=== PATIENT | female | born 1985 | race Caucasian/White ===

== ENCOUNTER 2023-02-03 09:50 | Observation (INO) | payer OTHER ==
[~2023-02-03] VITALS: Ht 154.9 cm; Wt 69.4 kg
[2023-02-03] MEDS ORDERED: DEXT 5%/LACTATED RINGERS 1,000 ML IV SCH (11:00)
[2023-02-03 11:27] LABS: BASOPHILS % 0.3 % (0.0-2.0); HEMATOCRIT. 34.8 % (36.0-48.0); MEAN CORPUSCULAR HEMOGLOBIN 29.7 pg (28.0-32.0); MEAN CORPUSCULAR VOLUME 86.1 fL (81.0-99.0); MEAN PLATELET VOLUME 6.7 fl (7.4-10.4); MONOCYTES % 4.9 % (2.0-8.0); NEUTROPHILS % 74.8 % (40.0-76.0); PLATELET 330 x1000/uL (130-400); RED BLOOD CELL COUNT 4.04 mill/uL (4.2-5.4); RED CELL DISTRIBUTION WIDTH 13.6 % (11.6-14.6)
[2023-02-03 11:36] LABS: CHLORIDE 111 mEq/L (98-107)
== END 2023-02-03 12:41 | disposition home or self-care (01) ==
LOC: 8 EST LDRP 09:50
PROVIDERS: ADMIT Obstetrics & Gynecology; ATTEND Obstetrics & Gynecology
DX: O26.893 Other specified pregnancy related conditions, third trimester (principal); R55 Syncope and collapse; R42 Dizziness and giddiness; R00.0 Tachycardia, unspecified; R20.0 Anesthesia of skin; N89.8 Other specified noninflammatory disorders of vagina; Z3A.31 31 weeks gestation of pregnancy
CPT/HCPCS: 36415; 59025; 76805; 76818; 80053; 85025; 96360; 96361; G0378; 99281

== ENCOUNTER 2023-12-09 11:09 | Emergency (ER) | payer OTHER ==
[~2023-12-09] VITALS: Ht 167.6 cm; Wt 69.0 kg
[~2023-12-09 11:09] MED LIST: ACET-2708 MT; ALBU6.7H3 INH; PREN-176 PO
[2023-12-09 11:14] VITALS: BP 113/51; PULSE 86; RESP 20; TEMP 98; O2SAT 97
[2023-12-09] MEDS ORDERED: IBUP-2029 MT (11:49)
== END 2023-12-09 12:03 | disposition home or self-care (01) ==
LOC: ER 12:03
DX: R51.9 Headache, unspecified (principal); V49.9XXA Car occupant (driver) (passenger) injured in unspecified traffic accident, initial encounter; Y93.89 Activity, other specified; Y92.89 Other specified places as the place of occurrence of the external cause; Y99.8 Other external cause status
CPT/HCPCS: 99283